=== PATIENT | female | born 1990 | race Caucasian/White ===

== ENCOUNTER → 2017-02-22 05:21 | Day surgery (SDC) | payer MEDICAID ==
[2017-02-20 12:29] LABS: BASOPHILS 0.5 % (0-2); HEMATOCRIT 45.6 % (36.0-48.0); HEMOGLOBIN 15.6 g/dL (12-16); IMMATURE GRANULOCYTES 0.1 % (0-5); LYMPHOCYTES 31.6 % (15-50); MCH 30.8 pg (26.0-34.0); MCHC 34.2 g/dL (31.0-37.0); MCV 90.1 fL (80.0-100.0); MEAN PLATELET VOLUME 11.8 fL (7.4-10.4); MONOCYTES 8.2 % (2-11); NEUTROPHILS 53.6 % (40-80); PLATELET COUNT 218 10x3/uL (130-400); RBC 5.06 10x6/uL (4.00-5.40); RDW 12.9 % (11.5-14.5); WBC 7.8 10x3/uL (4.8-10.8)
[2017-02-20 12:46] LABS: CALC OSMOLALITY 270 mosm/kg (275-300); CALCIUM 9.1 mg/dL (8.5-10.1); CARBON DIOXIDE 26.6 mmol/L (21.0-32.0); CHLORIDE - SERUM 102 mmol/L (98-107); CREATININE - SERUM 0.8 mg/dL (0.6-1.3); GLUCOSE 83 mg/dL (74-106); POTASSIUM - SERUM 4.1 mmol/L (3.5-5.1); SODIUM 137 mmol/L (136-145); UREA NITROGEN 6 mg/dL (7-18); eGFR NON AFRICAN AMERICAN > 90 mL/min (90-120)
[~2017-02-22] VITALS: Ht 149.9 cm; Wt 45.4 kg
[~2017-02-22 05:21] MED LIST: BIRTH CONTROL MED; MOTRIN600 MG PO; PERCOCET 5/3251 TA1 PO
[2017-02-22 07:05] VITALS: BP 96/66; Ht 149.9 cm; Wt 45.4 kg
[2017-02-22 07:43] LABS: HCG URINE NEGATIVE (NEGATIVE)
--- NOTE | 2017-02-22 11:12 | NUR ---
1035 PT ESCORTED OUT BY VOLUNTEER AND ACCOMPANIED BY GRANDMOTHER.
== END | disposition home or self-care (01) ==
LOC: D.OPS 05:21 → D.PAN 08:15
PROVIDERS: Obstetrics & Gynecology
DX: A63.0 Anogenital (venereal) warts (principal); F17.200 Nicotine dependence, unspecified, uncomplicated; Z01.812 Encounter for preprocedural laboratory examination